=== PATIENT | male | born 1955 | race Caucasian/White ===

== ENCOUNTER 2024-06-27 13:31 | Outpatient (CLI) | payer SELFPAY ==
--- NOTE | 2024-06-27 13:47 | CT_ITS ---
WS: [id number] CT ABDOMEN NON-CONTRAST PLUS CONTRAST TECHNIQUE: Noncontrast CT of the abdomen and contrast-enhanced CT of the abdomen with coronal and sagittal reformatted images. CLINICAL INFORMATION: NEOPLASM OF TAIL OF PANCREAS COMPARISON: Ultrasound 06/27/2024 DLP: 1246.[address] scans at [facility] use at least one of these dose optimization techniques: automated exposure control; mA and/or kV adjustment per patient size (includes targeted exams where dose is matched to clinical indication); or iterative reconstruction. FINDINGS: Hypoenhancing lobulated mass involving the distal body and tail of the pancreas measuring approximately 3.2 x 4.5 x 2.4 cm AP by transverse by craniocaudal. Area of exophytic lobulation along the undersurface of the mass with surrounding spiculation suspicious for local invasion. This is best appreciated on the coronal imaging. Induration in the mesenteric fat about the celiac axis. Celiac and SMA are patent. There is partial encasement of the splenic artery. Common hepatic artery is patent. 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 SMV is patent. A few normal size lymph nodes in the upper abdomen and along the celiac axis. SMV and portal vein are patent. A few tiny low-attenuation lesions in the liver most likely hepatic cysts. Lung bases are well aerated. Small esophageal hiatal hernia. Mild thickening of the LEFT adrenal gland. Normal RIGHT adrenal gland. Normal gallbladder. No intrahepatic biliary ductal dilatation. Small bilateral renal cysts. Slight parenchymal scarring RIGHT kidney. Normal caliber upper abdominal aorta. Minimal aortic calcification. Moderate to advanced facet arthropathy lower lumbar spine. Disc space narrowing worse at L3-4 with endplate degenerative changes and moderate central canal stenosis. Moderate central canal stenosis L4-5 partially visualized. This can be followed up with MRI for better evaluation. CT/CT abdomen wo/w con [id number] IMPRESSION: 1. 3.2 x 4.5 x 2.4 cm hypoenhancing mass in the distal pancreatic body exten ding into the tail suspicious for adenocarcinoma. Small amount of undersurface exophytic lobulation with surrounding induration suspicious for local invasion. 2. Splenic vein is occluded. Portal vein is patent. SMV is patent. 3. A few small surrounding celiac axis and peripancreatic lymph nodes 4. Celiac is patent. Partial encasement of the splenic artery care. Common hep atic artery is patent. 5. A few tiny low-attenuation lesions in the liver likely hepatic cysts. No en hancing hepatic lesions. 6. Small esophageal hiatal hernia. 7. Disc space narrowing L3-4 with endplate degenerative changes and moderate c entral canal stenosis. Moderate central canal stenosis L4-5. This could be foll owed up with MRI on an elective basis if indicated.
[2024-06-27] MEDS: iohexol 350 mg/mL 500 mL Btl (per mL) PO (14:29)
[2024-06-27] MEDS: iohexol 350 mg/mL 500 mL Btl (per mL) IV (14:29)
== END 2024-06-27 13:32 | disposition home or self-care (01) ==
LOC: RAD 13:34
PROVIDERS: Family Provider Family Medicine; PCP Family Medicine; Visit Provider Family Medicine
DX: D49.0 Neoplasm of unspecified behavior of digestive system (principal); K86.9 Disease of pancreas, unspecified; R93.3 Abnormal findings on diagnostic imaging of other parts of digestive tract; I82.890 Acute embolism and thrombosis of other specified veins; R59.0 Localized enlarged lymph nodes; K44.9 Diaphragmatic hernia without obstruction or gangrene; M48.061 Spinal stenosis, lumbar region without neurogenic claudication; M47.896 Other spondylosis, lumbar region; R93.89 Abnormal findings on diagnostic imaging of other specified body structures; N28.1 Cyst of kidney, acquired
CPT/HCPCS: 74170